=== PATIENT | female | born 1995 | race African-American/Black ===

== ENCOUNTER 2018-12-18 21:02 | Inpatient (IN) ==
[2018-12-18] MEDS ORDERED: BRETHINE SUBQ PRN (21:41)
[2018-12-18] MEDS ORDERED: DEMEROL INJ PRN (21:41)
[2018-12-18] MEDS ORDERED: STADOL IV PRN (21:41)
[2018-12-18] MEDS: LR 1,000 ML IV SCH (22:05)
[2018-12-18] MEDS: TRANDATE PO SCH (22:21)
[2018-12-18] MEDS ORDERED: CERVIDIL VAGINAL VAG ONE (23:00)
[2018-12-19] MEDS: AMBIEN PO PRN ×2 (01:09→20:39)
[2018-12-19] MEDS: STADOL IV PRN ×2 (04:17→13:41)
[2018-12-19] MEDS: TRANDATE PO SCH ×3 (05:21→20:39)
[2018-12-19] MEDS: ZOFRAN IV PRN ×3 (06:49→19:11)
[2018-12-19] MEDS: LR 1,000 ML IV SCH (07:10)
--- NOTE | 2018-12-19 08:51 | HISTORY AND PHYSICAL ---
HISTORY OF PRESENT ILLNESS: The patient is a 23-year-old, black female, G 2, P 0, A 1 at 37 weeks and 5 days with chronic hypertension that has been worsening over the past week. The patient's care is significant for chronic hypertension, a large uterine fibroid roughly 14 to 15 cm that has been watched closely during her , anemia. The patient also had sickle cell trait. Group B strep culture was negative. Her EDC of 01/03/2019 was based on a 6- week ultrasound. PAST MEDICAL HISTORY: Chronic hypertension. PAST SURGICAL HISTORY: She has had oral surgery. PAST OB HISTORY: G 2, P 0, A 1. Spontaneous AB x1. 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 She reports that her menstrual cycles are irregular. REVIEW OF SYSTEMS: All systems reviewed and noncontributory. FAMILY HISTORY: Significant for high blood pressure and diabetes. SOCIAL HISTORY: Tobacco use: None. Alcohol use: None. MEDICATIONS: Labetalol 200 mg t.i.d., baby aspirin daily that was discontinued upon admission, and then iron and vitamins. ALLERGIES: No known drug allergies. PHYSICAL EXAMINATION: VITAL SIGNS: Height 5 feet 5 inches, weight 254 pounds. Temperature 97.8 degrees, blood pressure 137/87, pulse of 76, respirations 18, heart rate 130s with good [id number] variability. HEENT: Pupils equal, round, reactive to light and accommodation. Extraocular movements intact. Oropharynx clear. NECK: Supple. No thyromegaly. LUNGS: Clear to auscultation. HEART: Regular rate and rhythm. ABDOMEN: Gravid. Fundal height roughly 43 cm; this is due in part to the uterine fibroid. Ultrasound prior to patient's admission showed vertex presentation. On cervical exam, cervix was essentially closed, about 30% effaced, and -2 station. EXTREMITIES: Mild lower extremity edema. 1+ DTRs bilaterally. ASSESSMENT/PLAN: A 23-year-old, black female, G 2, P 0, A 1 at 37 and 5/7 weeks with chronic hypertension that has been worsening over time, now with proteinuria exhibited on clean catch urine at 2+. OTHER LABORATORY STUDIES: Evaluating preeclampsia showed an elevated uric acid. Creatinine was normal and SGOT was normal. Platelet count was also normal. Her hemoglobin was low as it has been throughout her . The patient was started on Cervidil for cervical ripening and then will add Pitocin after the Cervidil was removed. Discussed with the patient that due to the uterine fibroid and, at the time of delivery, the fibroid prevents her from having the uterus contract completely, that may necessitate rescue measures and also including possible hysterectomy. The patient is aware of these possibilities. cc: Los Stein III, MD
[2018-12-19] MEDS ORDERED: KEFZOL 1 GM/D5W 1 GM/50 ML IVPB IV PRN (09:45)
[2018-12-19] MEDS ORDERED: BICITRA PO PRN (09:48)
[2018-12-19] MEDS ORDERED: XYLOCAINE-MPF 1% INJ PRN (09:51)
[2018-12-19] MEDS ORDERED: MINERAL OIL TOP PRN (09:53)
[2018-12-19] MEDS: PITOCIN 30 UNITS/NS 30 UNIT/500 ML IV.SOLN IV SCH (10:00)
[2018-12-19] MEDS ORDERED: APRESOLINE IV ONE ×2 (11:51→12:35)
[2018-12-19] MEDS: APRESOLINE IV ONE ×2 (17:30→18:58)
[2018-12-19] MEDS ORDERED: TYLENOL PO PRN (17:35)
[2018-12-19] MEDS: PHENERGAN INJ PRN (19:53)
[2018-12-19] MEDS: SODIUM CHLORIDE 0.9% INJ PRN (19:53)
[2018-12-19] MEDS ORDERED: CERVIDIL VAGINAL VAG ONE (20:30)
[2018-12-20] MEDS: TRANDATE PO SCH ×3 (06:06→13:12)
[2018-12-20] MEDS: PHENERGAN INJ PRN (06:20)
[2018-12-20] MEDS: SODIUM CHLORIDE 0.9% INJ PRN (06:20)
[2018-12-20] MEDS ORDERED: MAGNESIUM SULFATE 4 GM/S.W.I. 4 GM/100 ML IVPB IV ONE (06:34)
[2018-12-20] MEDS ORDERED: APRESOLINE IV ONE ×2 (07:27→08:23)
[2018-12-20] MEDS ORDERED: TRANDATE PO ONE (07:28)
[2018-12-20] MEDS: MAGNESIUM SULFATE 40 GM/S.W.I. 40 GM/1,000 ML IV.SOLN IV SCH (07:38)
[2018-12-20] MEDS: LR 1,000 ML IV SCH ×2 (08:30→16:17)
[2018-12-20] MEDS ORDERED: TYLENOL PO ONE (09:05)
[2018-12-20] MEDS: PITOCIN 30 UNITS/NS 30 UNIT/500 ML IV.SOLN IV SCH (09:10)
[2018-12-20] MEDS: STADOL IV PRN (13:14)
[2018-12-20] MEDS ORDERED: FENTANYL-BUPIV-NS 2 MCG-0.1% 200 ML EPIDURAL PRN (15:21)
[2018-12-20] MEDS ORDERED: NAROPIN 0.2% INJ PRN (15:22)
--- NOTE | 2018-12-20 16:45 | OB/GYN PROGRESS NOTE ---
Progress Note OB - . OB Progress Note: Vital Signs - 24 hr 12/19/18 20:46 12/20/18 07:00 12/20/18 11:30 Temperature 96.5 F L 96.1 F L 96.8 F L Pulse Rate 101 H 95 H 96 H Respiratory Rate 20 18 16 Blood Pressure 148/79 143/82 140/79 O2 Sat by Pulse Oximetry 98 90 L 12/20/18 15:21 Temperature 96.7 F L Pulse Rate 90 Respiratory Rate 18 Blood Pressure 157/92 O2 Sat by Pulse Oximetry 99 23 y/o with PNC complicated by large uterine fibroid, CHTN, now with valenzuela perimposed Pre-eclampsia by severe range blood pressures (s/p A25) on magnesium for seizure ppx. Patient resting comfortably with epidural. Reported sever PETER this AM that was relieved with Tylenol. A&O NAD CTAB S/ND/Gravid/morbid obesity EXT: 2+ bilateral LEONIDES CVX: 2/75/-2/vertex/Bowr clear fluid (SROM) FHTs: Reassuring A/P 23 y/o G2PO with CHTN with superimposed Pre-e and large fibroid now s/p cervidil x 2 on pitocin. Patient with SROM and cervical change at this time. - Superimposed Pre-Eclampsia: continue magnesium sulfate for seizure ppx for 24 hrs post . - Anticipate
--- NOTE | 2018-12-20 20:37 | OB/GYN PROGRESS NOTE ---
Progress Note OB - . Patient Problems: Current Active Problems Problem Status Onset HTN in , chronic Acute Severe pre-eclampsia affecting first Acute Failed induction of labor Acute 38 weeks gestation of Acute Fibroid uterus Acute OB Progress Note: Vital Signs - 24 hr 12/19/18 20:46 12/20/18 07:00 12/20/18 11:30 Temperature 96.5 F L 96.1 F L 96.8 F L Pulse Rate 101 H 95 H 96 H Respiratory Rate 20 18 16 Blood Pressure 148/79 143/82 140/79 O2 Sat by Pulse Oximetry 98 90 L 12/20/18 15:21 Temperature 96.7 F L Pulse Rate 90 Respiratory Rate 18 Blood Pressure 157/92 O2 Sat by Pulse Oximetry 99 23 y/o at 38 weeks with PNC complicated by large uterine fibroid, CHTN, now with superimposed Pre-eclampsia by severe range blood pressures (s/p A25) on magnesium for seizure ppx. Patient reports contraction pain and epidural in place. Denies PETER/SOB/CP/scotomata/epigastric pain GEN: NAD RESP: CTAB ABD: S/NTTP/Gravid/morbid obesity EXT: 2+ bilateral LEONIDES CVX: 2-3 cm/75 %/-3/vertex FHTs: Reassuring, Cat I A/P 23 y/o G2PO at 38 weeks with CHTN, superimposed Pre-e with severe features and large subserosal fibroid now s/p cervidil x 2 on pitocin at 24 units. Patient with SROM and minimal cervical change at this time. Pt requesting c- section - Superimposed Pre-Eclampsia: continue magnesium sulfate for seizure ppx for 24 hrs post . Monitor BP's closely. s/p hydralazine IV. Con't Labetalol TID for BP control. - Failed induction of labor: plan for primary
[2018-12-20] MEDS ORDERED: NAROPIN 0.5% ONE (20:48)
[2018-12-20] MEDS ORDERED: NAROPIN 0.5% INJ ONE (20:49)
[2018-12-20] MEDS ORDERED: DIPRIVAN 1% ONE (21:14)
[2018-12-20] MEDS ORDERED: FENTANYL ONE (21:16)
[2018-12-20] MEDS ORDERED: ZOFRAN ONE (21:39)
[2018-12-20] MEDS ORDERED: PITOCIN ONE (21:46)
[2018-12-20] MEDS ORDERED: VERSED ONE (21:50)
[2018-12-20] MEDS ORDERED: MYLICON PO PRN (23:37)
[2018-12-20] MEDS ORDERED: M-M-R II VACCINE SUBQ ONE (23:37)
[2018-12-20] MEDS ORDERED: PITOCIN 20 UNITS/NS 20 UNITS/1,000 ML IV.SOLN IV ONE (23:37)
[2018-12-20] MEDS ORDERED: AMBIEN PO PRN (23:37)
[2018-12-20] MEDS ORDERED: HYDROXYZINE IM PRN (23:37)
[2018-12-20] MEDS ORDERED: PHENERGAN IM PRN (23:37)
[2018-12-20] MEDS ORDERED: BOOSTRIX VACCINE IM ONE (23:37)
[2018-12-20] MEDS ORDERED: DEMEROL PO PRN ×2 (23:37)
[2018-12-20] MEDS ORDERED: PITOCIN IM PRN (23:37)
[2018-12-20] MEDS ORDERED: DEMEROL IM PRN (23:37)
[2018-12-20] MEDS ORDERED: DULCOLAX PR PRN (23:37)
[2018-12-20] MEDS ORDERED: NARCAN IV PRN (23:45)
[2018-12-20] MEDS ORDERED: BENADRYL IV PRN (23:45)
[2018-12-20] MEDS ORDERED: LR 1,000 ML IV SCH (23:45)
[2018-12-20] MEDS ORDERED: MORPHINE PCA IV PRN (23:45)
[2018-12-20] MEDS ORDERED: ZOFRAN IV PRN (23:45)
[2018-12-21] MEDS: TRANDATE PO SCH ×4 (02:11→17:30)
[2018-12-21] MEDS: MAGNESIUM SULFATE 40 GM/S.W.I. 40 GM/1,000 ML IV.SOLN IV SCH (04:35)
--- NOTE | 2018-12-21 05:31 | OPERATIVE NOTE ---
PROCEDURE DATE: 12/20/2018 PREOPERATIVE DIAGNOSES: 1. Term at 38 weeks and 0 days. 2. Chronic hypertension with superimposed preeclampsia with severe features. 3. Fibroid uterus. 4. Failed induction of labor. POSTOPERATIVE DIAGNOSES: 1. Term at 38 weeks and 0 days. 2. Chronic hypertension with superimposed preeclampsia with severe features. 3. Fibroid uterus. 4. Failed induction of labor. PROCEDURE: Primary low transverse section via Pfannenstiel incision. SURGEON: Dr. Barak Ballesteros. FINISHED GOODS STOCK CLERK: None. ANESTHESIA: Epidural. ESTIMATED BLOOD LOSS: 700 mL. SPECIMEN: Placenta to Pathology. COMPLICATIONS: None. FINDINGS: Female infant in vertex position. 's 9 and 9 at one and ten minutes. Weight 6 pounds, 3 ounces. A 15 cm fundal fibroid noted. PROCEDURE: The patient was taken to the operating room, where epidural anesthesia was found to be adequate. Two g of Ancef were given for infection prophylaxis. She was prepped and draped in dorsal supine position with a leftward tilt. A Pfannenstiel skin incision was made with a scalpel. The incision was carried down to the fascia with the Bovie. The fascia was incised and extended laterally. The inferior aspect of the fascia was grasped with Jessica clamps, the underlying rectus muscle and pyramidalis was dissected off sharply with the Bovie. In a similar fashion, the superior aspect of the fascia was elevated with Jessica clamps. The rectus muscle was dissected off. Hemostasis was achieved with the Bovie. The rectus muscle was in the midline down to the level of the pubic symphysis. Preperitoneal fatty tissue was bluntly dissected to expose the peritoneum. The peritoneum was found to be free of adherent bowel and entered bluntly. The peritoneal incision was extended superiorly and inferiorly to the bladder reflection with good visualization of the bladder. The bladder blade was inserted and the vesicouterine peritoneum identified. Intra-abdominal survey revealed scant clear peritoneal fluid and the thinned out lower uterine segment, and a 15 cm fundal fibroid on the left side of the uterus. The vesicouterine peritoneum was opened with scissors and the bladder flap was developed. The bladder blade was repositioned to keep the bladder out of the operative field. The lower uterine segment was incised with a scalpel. The amniotic sac was entered and clear fluid noted. The uterine incision was extended bluntly with upward traction. The fetus was in cephalic presentation. The head was elevated out of the pelvis with special attention paid to avoid using the uterine incision as a fulcrum. Gentle fundal pressure was applied once the head was brought into the incision. The infant was delivered with no difficulty. The mouth and nose were suctioned with a bulb. The cord was clamped and cut. The infant was handed off to the waiting adding machine mechanic staff. IV oxytocin was initiated to facilitate uterine contractions. The placenta was delivered. The inside of the uterus was gently wiped with a lap sponge to assure complete removal of placental membranes. The uterine incision was closed with 0 Vicryl suture in a running locked fashion. The blood clots and fluids were wiped out of the abdomen and pelvis with moist laparotomy sponges. The uterine incision was inspected and good hemostasis was noted. Surgicel strips were applied to the uterine incision to reinforce hemostasis. The fascial layer was closed with 0 Vicryl suture in a running nonlocking fashion. The subcutaneous fat was closed using 2-0 plain gut in a running nonlocking fashion, and the skin was closed with 4-0 Monocryl suture on a Oswaldo needle insert. The patient tolerated the procedure well. All the counts were correct x2. The patient was taken back to recovery room in stable condition. cc: Los Stein III, MD
--- NOTE | 2018-12-21 06:41 | OB/GYN PROGRESS NOTE ---
Progress Note OB - . Patient Problems: Current Active Problems Problem Status Onset Fibroid uterus Acute 38 weeks gestation of Acute Failed induction of labor Acute Severe pre-eclampsia affecting first Acute HTN in , chronic Acute OB Progress Note: Vital Signs - 24 hr 12/20/18 07:00 12/20/18 11:30 12/20/18 15:21 Temperature 96.1 F L 96.8 F L 96.7 F L Pulse Rate 95 H 96 H 90 Respiratory Rate 18 16 18 Blood Pressure 143/82 140/79 157/92 Blood Pressure [Left Arm] O2 Sat by Pulse Oximetry 98 90 L 99 12/20/18 22:00 12/20/18 22:25 12/20/18 22:35 Temperature 96.9 F L Pulse Rate 97 H 89 Respiratory Rate 16 16 Blood Pressure 122/75 Blood Pressure [Left Arm] 122/75 123/73 O2 Sat by Pulse Oximetry 93 L 92 L 12/20/18 22:45 12/20/18 22:55 12/20/18 23:05 Temperature Pulse Rate 90 91 H 94 H Respiratory Rate 16 16 16 Blood Pressure Blood Pressure [Left Arm] 124/72 125/78 120/74 O2 Sat by Pulse Oximetry 90 L 90 L 12/20/18 23:15 12/20/18 23:25 12/20/18 23:38 Temperature Pulse Rate 87 98 H 98 H Respiratory Rate 16 16 16 Blood Pressure 132/82 132/82 Blood Pressure [Left Arm] 130/80 132/82 O2 Sat by Pulse Oximetry 93 L 93 L 12/21/18 03:55 Temperature Pulse Rate 82 Respiratory Rate 18 Blood Pressure 155/89 Blood Pressure [Left Arm] O2 Sat by Pulse Oximetry Laboratory Results - last 24 hr 12/18/18 22:25 Blood Type O POSITIVE Antibody Screen NEGATIVE Crossmatch See Detail HPI: Pt seen and examined. Currently w/o complaints. 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 Pt resting in bed comfortably. Tolerating ice chips. Denies fever/chills/N/V. +bottle feeding, -breast feeding and decreased lochia. Denies PETER/SOB/CP/scotomata/epigastric pain VS: please see above GEN: NAD CV: +S1S2 RESP: CTABL ABD: soft NTTP, FF at umbilicus INC: c/D/I EXT: neg CT Hgb: pending A/P: 23yo POD#1 s/p primary CD secondary failed IOL -CHTN with superimposed pre-eclampsia: con't mag sulfate 24 hours post delivery (10:30 pm). BP's well controlled. Continue Labetalol 200mg PO TID -con't PRINTED CIRCUIT DESIGNER while on mag -adequate UOP, d/c yoon s/p 24 hrs mag sulfate -Con't SCD and encourage ambulation s/p mag sulfate -advance diet to clears at 10:30 am today -con't routine PP care
[2018-12-21 07:17] LABS: BASO# 0.01 X1000 (0.0-0.2); BASO% 0.1 % (0.0-0.8); EOS# 0.09 X1000 (0.0-0.7); EOS% 0.7 % (0.0-10.0); HEMATOCRIT 27.5 % (37.0-47.0); HEMOGLOBIN 9.2 g/dL (12.0-16.0); IMM GRAN# 0.03 X1000 (0.0-0.04); IMM GRAN% 0.2 % (0.0-0.5); LYMPH# 1.44 X1000 (1.2-3.4); LYMPH% 11.3 % (20.5-51.1); MCH 28.5 PG (27-31); MCHC 33.5 g/dL (33-37); MCV 85.1 FL (81-99); MONO# 0.96 X1000 (0.11-0.59); MONO% 7.5 % (1.7-9.3); MPV 10.1 FL (7.4-10.4); NEUT# 10.25 X1000 (1.4-6.5); NEUT% 80.2 % (42.2-75.2); PLT 298 X1000 (130-400); RBC 3.23 XMIL (4.2-5.4); RDW 14.7 % (11.5-14.5); WBC 12.78 X1000 (4.8-10.8)
[2018-12-21 07:26] LABS: BANDS 2 % (0-1); LYMPHS 10 % (21-51); MONO 7 % (1-9); POLYCHROM OCCASIONAL; SEGS 80 % (42-75)
[2018-12-21 07:27] LABS: LARGE PLATELETS OCCASIONAL
[2018-12-21] MEDS: MYLICON PO SCH ×4 (09:48→23:16)
[2018-12-21] MEDS: PITOCIN 10 UNITS/NS 1,000 ML IV SCH ×2 (14:01→16:30)
[2018-12-21] MEDS: FERROUS SULFATE PO SCH (14:02)
[2018-12-21] MEDS: FLINTSTONES COMPLETE PO SCH (14:02)
[2018-12-21] MEDS ORDERED: MORPHINE PCA IV PRN (15:07)
[2018-12-21] MEDS ORDERED: BENADRYL IV PRN (15:08)
[2018-12-21] MEDS ORDERED: NARCAN IV PRN (15:08)
[2018-12-21] MEDS ORDERED: ZOFRAN IV PRN (15:08)
[2018-12-21] MEDS ORDERED: MAGNESIUM SULFATE 40 GM/S.W.I. 40 GM/1,000 ML IV.SOLN IV SCH (18:22)
[2018-12-21] MEDS: MOTRIN PO PRN (23:15)
[2018-12-21] MEDS: PERICOLACE PO SCH (23:15)
[2018-12-21] MEDS ORDERED: LR 1,000 ML IV SCH (23:38)
[2018-12-22] MEDS: PERCOCET-10 PO PRN ×3 (03:44→19:55)
--- NOTE | 2018-12-22 07:41 | OB/GYN PROGRESS NOTE ---
Progress Note OB - . Patient Problems: Current Active Problems Problem Status Onset Intrauterine Acute Fibroid uterus Acute 38 weeks gestation of Acute Failed induction of labor Acute Severe pre-eclampsia affecting first Acute HTN in , chronic Acute OB Progress Note: Vital Signs - 24 hr 12/21/18 08:33 12/21/18 11:20 12/21/18 14:10 Temperature 96.8 F L 96.4 F L 98.4 F Pulse Rate 88 79 97 H Respiratory Rate 18 18 16 Blood Pressure 147/93 133/80 142/84 O2 Sat by Pulse Oximetry 95 96 95 12/21/18 22:00 12/22/18 03:59 Temperature 96.7 F L 97.2 F L Pulse Rate 78 95 H Respiratory Rate 16 16 Blood Pressure 122/70 112/64 O2 Sat by Pulse Oximetry 94 L Laboratory Results - last 24 hr 12/18/18 12/21/18 12/21/18 22:25 06:24 14:34 Segmented Neutrophils 80 H Band Neutrophils 2 H Lymphocytes 10 L Monocytes 7 Atypical Lymphocytes 1.0 Large Platelets OCCASIONAL Polychromasia OCCASIONAL Macrocytosis OCCASIONAL Magnesium 7.1 H Crossmatch See Detail Obese BSF now POD#2 following primary LTCS following failed induction for severe pre-eclampsia. She notes mid-abdominal pain, no nausea or vomiting, and tolerated solid PO intake and oral analgesics since discontinueation of magnesium prophylaxis last night. She denies PIH sx. She denies dysuria or difficulty voiding since removal of Beck last night and has experienced a brisk diuresis. O: BP <160/100 HEENT trace edema Chest clear to bases. Nl respiratory effort CVS RRR Abdomen slightly distended, hypoactive bowel sounds, fundus difficult to locate due to mid-abdomal tenderness attributed to intestinal gas Ext trace jerardo DTRs 2+ Clonus absent A/P POD#2 PLTCS failed IOL severe pre-eclampsia Continue oral Labetalol 200 mg TID Mylicon, ambulation, abdominal heat Recheck CBC She verbalizes agreement with the plan of care
[2018-12-22] MEDS: MOTRIN PO PRN ×2 (07:47→19:55)
[2018-12-22 08:59] LABS: BASO# 0.01 X1000 (0.0-0.2)
[2018-12-22 09:00] LABS: BASO% 0.1 % (0.0-0.8); EOS% 1.3 % (0.0-10.0); IMM GRAN% 0.7 % (0.0-0.5); LYMPH% 11.5 % (20.5-51.1); MCH 28.3 PG (27-31); MCHC 33.3 g/dL (33-37); MCV 84.8 FL (81-99); MONO% 8.7 % (1.7-9.3); MPV 10.2 FL (7.4-10.4); NEUT# 8.67 X1000 (1.4-6.5); NEUT% 77.7 % (42.2-75.2); PLT 243 X1000 (130-400); RBC 2.83 XMIL (4.2-5.4); RDW 14.6 % (11.5-14.5); WBC 11.16 X1000 (4.8-10.8)
[2018-12-22 09:01] LABS: EOS# 0.15 X1000 (0.0-0.7); IMM GRAN# 0.08 X1000 (0.0-0.04); LYMPH# 1.28 X1000 (1.2-3.4); MONO# 0.97 X1000 (0.11-0.59)
[2018-12-22] MEDS: FLINTSTONES COMPLETE PO SCH (09:30)
[2018-12-22] MEDS: MYLICON PO SCH ×3 (09:31→18:03)
[2018-12-22] MEDS: FERROUS SULFATE PO SCH (09:31)
[2018-12-22] MEDS: TRANDATE PO SCH ×3 (09:31→17:17)
[2018-12-22] MEDS: ATARAX PO PRN (10:57)
[2018-12-22] MEDS: PERICOLACE PO SCH (19:55)
[2018-12-23] MEDS: ATARAX PO PRN (04:41)
[2018-12-23] MEDS ORDERED: M-M-R II VACCINE SUBQ ONE (07:23)
[2018-12-23] MEDS: TRANDATE PO SCH ×3 (08:35→20:49)
[2018-12-23] MEDS: FERROUS SULFATE PO SCH (08:36)
[2018-12-23] MEDS: PERCOCET-10 PO PRN ×3 (08:36→22:45)
[2018-12-23] MEDS: MYLICON PO SCH ×4 (08:37→20:51)
[2018-12-23] MEDS: FLINTSTONES COMPLETE PO SCH (08:37)
[2018-12-23] MEDS: MOTRIN PO PRN (08:37)
--- NOTE | 2018-12-23 09:01 | OB/GYN PROGRESS NOTE ---
Progress Note OB - . Patient Problems: Current Active Problems Problem Status Onset Severe pre-eclampsia affecting first Acute 38 weeks gestation of Acute delivery delivered Acute Failed induction of labor Acute Fibroid uterus Acute Sickle cell trait Acute Anemia complicating Acute Intrauterine Acute HTN in , chronic Acute OB Progress Note: Vital Signs - 24 hr 12/22/18 11:45 12/22/18 16:10 12/22/18 20:00 Temperature 96.1 F L 96.3 F L 96.9 F L Pulse Rate 87 78 80 Respiratory Rate 18 20 16 Blood Pressure 145/89 124/77 124/58 O2 Sat by Pulse Oximetry 96 95 12/23/18 00:40 12/23/18 04:40 Temperature 97.0 F L Pulse Rate 79 88 Respiratory Rate 16 16 Blood Pressure 129/72 143/94 O2 Sat by Pulse Oximetry Laboratory Results - last 24 hr 12/21/18 12/22/18 06:24 08:05 WBC 11.16 H RBC 2.83 L Hgb 8.0 L Hct 24.0 L MCV 84.8 MCH 28.3 MCHC 33.3 RDW Std Deviation 14.6 H Plt Count 243 MPV 10.2 Immature Gran % (Auto) 0.7 H Neut % (Auto) 77.7 H Lymph % (Auto) 11.5 L Gosper % (Auto) 8.7 Eos % (Auto) 1.3 Baso % (Auto) 0.1 Immature Gran # (Auto) 0.08 H Neut # (Auto) 8.67 H Lymph # (Auto) 1.28 Gosper # (Auto) 0.97 H Eos # (Auto) 0.15 Baso # (Auto) 0.01 Blood Type Confirm O POSITIVE POD 3 primary c.section for failed induction, chronic HTN. Pt is without complaints. She is beginning to pass gas and is feeling better. Abd is still distended but with bowel sounds. B/P elevated this AM. AM dose of Labetalol 200mg just given to patient. Abd: soft, nontender, distended, bowel sounds present. Incision is dry and intact. No calf tenderness. A/P: Stable POD 3 but will watch B/P today. Baby was placed under photo therapy this AM and can not be discharged. Pt would like to stay another day.
[2018-12-23 11:38] LABS: ALBUMIN 2.8 g/dL (3.5-5.0); CALCIUM 8.5 mg/dL (8.8-10.2); CREATININE 1.3 mg/dL (0.5-0.9); POTASSIUM 4.7 mmol/L (3.5-5.1); TOTAL BILIRUBIN 0.3 mg/dL (0.20-1.00); TOTAL PROTEIN 6.8 g/dL (6.3-8.3)
--- NOTE | 2018-12-23 13:11 | OB/GYN PROGRESS NOTE ---
Progress Note OB - . Patient Problems: Current Active Problems Problem Status Onset Severe pre-eclampsia affecting first Acute 38 weeks gestation of Acute delivery delivered Acute Failed induction of labor Acute Fibroid uterus Acute Sickle cell trait Acute Anemia complicating Acute Intrauterine Acute HTN in , chronic Acute OB Progress Note: Vital Signs - 24 hr 12/22/18 16:10 12/22/18 20:00 12/23/18 00:40 Temperature 96.3 F L 96.9 F L 97.0 F L Pulse Rate 78 80 79 Respiratory Rate 20 16 16 Blood Pressure 124/77 124/58 129/72 O2 Sat by Pulse Oximetry 95 12/23/18 04:40 12/23/18 08:00 12/23/18 08:25 Temperature 97.2 F L Pulse Rate 88 88 87 Respiratory Rate 16 17 18 Blood Pressure 143/94 164/101 O2 Sat by Pulse Oximetry 98 12/23/18 10:41 12/23/18 12:05 Temperature 97.0 F L Pulse Rate 83 Respiratory Rate 18 Blood Pressure 150/86 140/86 O2 Sat by Pulse Oximetry 97 Laboratory Results - last 24 hr 12/21/18 12/23/18 06:24 10:29 Sodium 138 Potassium 4.7 Chloride 103 Carbon Dioxide 23 L Anion Gap 12 BUN 19 Creatinine 1.3 H Estimated GFR/1.73 m2 51 BUN/Creatinine Ratio 15 Glucose 99 Calculated Osmolality 278 Calcium 8.5 L Total Bilirubin 0.30 AST 13 ALT 6 L Alkaline Phosphatase 139 H Total Protein 6.8 Albumin 2.8 L Globulin 4.0 Albumin/Globulin Ratio 1.0 Blood Type Confirm O POSITIVE Stopped Motrin because of serum creatinine of 1.3.
[2018-12-23] MEDS: PERICOLACE PO SCH (20:51)
[2018-12-23] MEDS ORDERED: PEPCID PO PRN (21:00)
[2018-12-24] MEDS: TRANDATE PO SCH ×2 (04:56→13:09)
[2018-12-24 06:16] LABS: AGAP 10; ALBUMIN 2.7 g/dL (3.5-5.0); ALKALINE PHOSPHATASE 120 U/L (32-104); BUN 15 mg/dL (8-22); CALCIUM 8.4 mg/dL (8.8-10.2); CHLORIDE 104 mmol/L (98-107); COSMO 274; ESTIMATED GFR > 60; GLUCOSE 83 mg/dL (70-104); GOT 12 U/L (10-30); GPT 7 U/L (10-36); SODIUM 137 mmol/L (136-145); TCO2 23 mmol/L (25-35); TOTAL PROTEIN 6.4 g/dL (6.3-8.3)
[2018-12-24 06:35] LABS: BASO# 0.01 X1000 (0.0-0.2); BASO% 0.2 % (0.0-0.8); EOS# 0.35 X1000 (0.0-0.7); EOS% 5.7 % (0.0-10.0); HEMATOCRIT 22.2 % (37.0-47.0); HEMOGLOBIN 7.1 g/dL (12.0-16.0); IMM GRAN# 0.05 X1000 (0.0-0.04); IMM GRAN% 0.8 % (0.0-0.5); LYMPH# 1.48 X1000 (1.2-3.4); MCH 27.5 PG (27-31); MONO# 0.77 X1000 (0.11-0.59); MONO% 12.5 % (1.7-9.3); MPV 10.5 FL (7.4-10.4); NEUT# 3.51 X1000 (1.4-6.5); NEUT% 56.8 % (42.2-75.2); PLT 290 X1000 (130-400); RBC 2.58 XMIL (4.2-5.4); RDW 14.7 % (11.5-14.5); WBC 6.17 X1000 (4.8-10.8)
[2018-12-24] MEDS: PERCOCET-10 PO PRN ×2 (06:39→10:52)
[2018-12-24 06:42] LABS: EOS 8 % (1-10); LYMPHS 22 % (21-51); MONO 10 % (1-9); SEGS 60 % (42-75)
[2018-12-24] MEDS: FLINTSTONES COMPLETE PO SCH (09:03)
[2018-12-24] MEDS: FERROUS SULFATE PO SCH (09:04)
[2018-12-24] MEDS: MYLICON PO SCH ×2 (09:05→13:09)
[2018-12-24 11:54] VITALS: BP 158/87
--- NOTE | 2018-12-25 08:03 | DISCHARGE SUMMARY ---
ADMISSION DATE: 12/18/2018 DISCHARGE DATE: 12/24/2018 ADMISSION DIAGNOSIS: A 23-year-old black female G2, P0, A1 at 37 and 5/7 weeks with chronic hypertension that has been worsening over time with proteinuria for labor induction. FINAL DIAGNOSIS: A 23-year-old black female G2, P0, A1 at 37 and 5/7 weeks with chronic hypertension that has been worsening over time with proteinuria for labor induction with operative delivery of a female , 6 pounds 3 ounces with Apgars of 9 and 9 at 21:30 on 12/20/2018. PROCEDURES: 1. Primary low transverse . 2. Magnesium sulfate administration for seizure prophylaxis. BRIEF HISTORY: The patient is a 23-year-old, black female, G2, P0, A1, 37 and 5/7 weeks with chronic hypertension that has been worsening over the past week. care significant for chronic hypertension as well as a large uterine fibroid roughly 14 to 15 cm that has been watched closely during . Patient also has anemia during the . She has sickle cell trait, and unable to obtain father of the baby status. Group B strep culture was negative. EDC of 01/03/2019 was based on 6 week ultrasound scan. PAST MEDICAL HISTORY: Chronic hypertension. PAST SURGICAL HISTORY: Oral surgery. PAST OB HISTORY: G2, P0, A1, spontaneous AB x1. 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 She reports that her cycles are irregular. REVIEW OF SYSTEMS: All systems reviewed and noncontributory. FAMILY HISTORY: Significant for high blood pressure and diabetes. SOCIAL HISTORY: Tobacco use none. Alcohol use none. MEDICATIONS: 1. Labetalol 200 mg t.i.d. 2. Baby aspirin that was discontinued upon admission as well as vitamins and iron. ALLERGIES: No known drug allergies. PHYSICAL EXAMINATION: Vital Signs: Height 5 feet 4 inches and weight 254 pounds. Temperature 97.8 degrees, blood pressure 137/87, pulse of 76, respirations 18, and heart rate in the 130s with good [id number] variability. HEENT: Pupils equal, round, and reactive to light and accommodation. Extraocular movements intact. Oropharynx clear. Neck: Supple. No thyromegaly. Lungs: Clear to auscultation. Heart: Regular rate and rhythm. Abdomen: Gravid. Fundal height was 43 cm due in part to the uterine fibroid. Ultrasound prior to admission showed a vertex presentation. Cervical exam: Cervix was essentially closed about 30% effaced, and -2 station. Extremities: Mild lower extremity edema. 1+ DTRs bilaterally. ASSESSMENT AND PLAN: A 23-year-old black female G2, P0, A1 at 37 and 5/7 weeks with chronic hypertension that has been getting worse over the past week now with proteinuria exhibited on clean-catch urine. Creatinine and SGOT were normal. She did have an elevated uric acid. Platelet counts were also normal. Hemoglobin was low, and it had been throughout the . The patient was initially started on Cervidil for cervical ripening and then Pitocin was added the following day. This was then discontinued, and the Cervidil was placed back in for the night. The following day the Pitocin was then restarted. The patient had an epidural placed, and was continued on Pitocin and had blood pressure monitored closely. The Apresoline was given as needed. The patient was placed on magnesium sulfate. At a certain point in time, the patient decided the length of time was too great, and she asked for a . On the , the patient had a with delivery of a female infant, 6 pounds 3 ounces with Apgars of 9 and 9 at 21:30 on 12/20/2018. The patient's postoperative course, she was maintained on magnesium sulfate for 24 hours after delivery. Patient had her blood pressure monitor closely, and had labs rechecked to show that she was improving from her chemistry status. Creatinine remained slightly elevated so Motrin was discontinued from her use of . Postop day #4, patient was ambulatory and tolerating p.o., had mild lochia and had positive flatus. She was afebrile with stable vital signs, and blood pressure seemed to be controlled on labetalol 200 every 8 hours. I felt the patient could be discharged home at this time. DISCHARGE PLAN: Patient is to follow up in 1 week for postop check as well as a blood pressure check. She was given instructions on no heavy lifting and pelvic rest. DISCHARGE MEDICATIONS: 1. Labetalol 200 mg t.i.d. 2. Percocet 10 dispense 30. No refills. 3. Iron sulfate 325 mg dispensed 30 with 1 refill. 4. Colace 100 mg dispensed 30 with 1 refill. cc: Los Stein III, MD
== END 2018-12-24 16:10 | disposition home or self-care (01) | DRG 788 ==
LOC: P.LD 21:02
PROVIDERS: ADMIT Obstetrics & Gynecology; ATTEND Obstetrics & Gynecology
CPT/HCPCS: 80053; 83735; 84550; 85025; 86850; 86900; 86901; 86920; 90707; 90715; 94799; A9270; J0360; J0595; J0690; J2175; J2250; J2270; J2275; J2405; J2550; J2590; J2795; J3010; J3475; J7120; Q9974